=== PATIENT | male | born 1985 | race Caucasian/White ===

== ENCOUNTER → 2016-07-29 | Outpatient (CLI) | payer BC ==
[~2016-07-29] MED LIST: GADOBUTROL 10mMol/10ml INJECTION IV ONE; NORMAL SALINE 50 ML IV ONE; SALINE FLUSH 10ml SYRINGE ONE
--- NOTE | 2016-07-29 10:17 | DI ---
Indication: ITS.REASON: E29.1 Testicular hypofunction PROCEDURE: MRI BRAIN W/WO CONTRAST: Encounter: Initial Comparisons: None Technique: Multiplanar, multisequence, MR imaging of the head with and without contrast was acquired. Contrast: 7.5 mL of Gadavist FINDINGS: The ventricles are of normal size, shape, and contour for the patient's age. There are no significant periventricular changes. The brain stem, cerebellum, and cerebral hemispheres have a normal morphologic appearance as well as MR signal intensity on all pulse sequences. Following intravenous administration of contrast, no areas of abnormal enhancement are evident. There are no areas of restricted diffusion to suggest an acute infarct. There is no evidence of an intracranial mass lesion, intracranial hemorrhage, or hydrocephalus. The visualized portions of the orbits, and skull base demonstrate no significant abnormality. There are scattered inflammatory changes in a few of the sphenoidal and anterior ethmoidal air cells with sparing of the maxillary and frontal air cells. Small [id number] dynamic imaging of the territory gland does not demonstrate a definite micro or macroadenoma. The hypothalamic stock is in the midline. IMPRESSION: Mild sphenoidal and ethmoidal sinus disease. No clear evidence for pituitary microadenoma or macroadenoma. No evidence for mass lesion, mass effect, or midline shift. No evidence for adrenal hemorrhage. No evidence for acute intracranial infarct. .
== END ==
LOC: IMA 07:18
PROVIDERS: ATTEND Internal Medicine Endocrinology, Diabetes & Metabolism
DX: E29.1 Testicular hypofunction (principal); J34.89 Other specified disorders of nose and nasal sinuses
CPT/HCPCS: 70553; A9585; J7050